=== PATIENT | male | born 1955 | race Caucasian/White ===

== ENCOUNTER 2019-11-25 10:09 | Outpatient (CLI) | payer BC, SELFPAY ==
--- NOTE | 2019-11-25 10:24 | XR_ITS ---
WS: [id number] XR chest 2V* [id number] REASON FOR EXAM: SHORTNESS OF BREATH FINDINGS: No previous examination for comparison. The heart and mediastinum are within normal limits for age. No active pulmonary parenchymal or pleural disease is noted. There is a thin flowing anterior osteophyte formation along the anterior thoracic spine. XR/XR chest 2V* [id number] IMPRESSION: No acute chest abnormality.
== END 2019-11-25 10:10 | disposition home or self-care (01) ==
PROVIDERS: PCP Electrodiagnostic Medicine; Visit Provider Electrodiagnostic Medicine
DX: R06.02 Shortness of breath (principal)
CPT/HCPCS: 71046

== ENCOUNTER 2020-07-23 11:16 | Outpatient (CLI) | payer OTHER, SELFPAY ==
[2020-07-23 11:24] VITALS: BMI 27.1
--- NOTE | 2020-07-23 11:24 | ECG_ITS ---
[facility] Test Date: 2020-07-23 Pat Name: Bradley Smith Department: Room: Gender: Male [employer]: : [id number] Requested By: Dawit Godfrey Order Number: [id number] Genoveva MD: DA JC Interpretive Statements NAME OF STUDY: TREADMILL STRESS TEST INDICATION: Chest Pain, EXERCISE DATA: The patient was exercised by Reza protocol. Baseline heart rate was 71 beats per minute. Baseline blood pressure was 140/80 millimeters of mercury. Target heart rate was 157 beats per minute. Maximum heart rate achieved was 147, which was 93 % of the target heart rate. Maximum blood pressure was 169/88 millimeters of mercury. Total exercise time was 3 minutes 47 seconds. Maximum METs achieved was 7.0, maximum VO2 was 24.5. The reason for ending the test was maximum effort achieved. The patient complained of shortness of during the stress test, which then resolved at the end of the test. ELECTROCARDIOGRAM: BASELINE: Showed sinus rhythm, normal axis, right bundle-branch, no significant ST-T changes at the baseline noted. EXERCISE: At the peak exercise level, no significant ST-T changes suggestive of ischemia noted. RECOVERY: During the recovery period, heart rate dropped appropriately. Inferolateral significant ST-T changes in the recovery noted. It came back to baseline after 5 minutes CONCLUSION: 1. Exercise capacity poor. 2. Heart rate response was appropriate. 3. Blood pressure response was appropriate. 4. Symptoms not suggestive of ischemia. 5. Electrocardiogram portion of the stress test was equivocal for ischemia 6. Nuclear scan will be documented separately. Electronically Signed On 07-24-2020 20:34:31 CDT by DA JC [id number]
[2020-07-23 11:51] VITALS: BP 158/88; PULSE 67
== END 2020-07-23 11:17 | disposition home or self-care (01) ==
LOC: CDL 11:17
PROVIDERS: PCP Family Medicine; Visit Provider Family Medicine
DX: R07.9 Chest pain, unspecified (principal)
CPT/HCPCS: 93017

== ENCOUNTER → 2021-08-30 14:31 | Outpatient (BNVA) | payer OTHER, SELFPAY | PROVIDERS: PCP Family Medicine; Visit Provider Family Medicine | DX: K21.9 Gastro-esophageal reflux disease without esophagitis (principal); I25.10 Atherosclerotic heart disease of native coronary artery without angina pectoris; G47.00 Insomnia, unspecified; G25.81 Restless legs syndrome; Z12.11 Encounter for screening for malignant neoplasm of colon | CPT/HCPCS: 80053; 80061; 82728; 83036; 83540; 84443; 85025 ==